=== PATIENT | male | born 1975 | race Caucasian/White ===

== ENCOUNTER 2023-02-22 20:47 | Inpatient (IN) | payer SELFPAY ==
[~2023-02-22] VITALS: Ht 170.2 cm; Wt 88.9 kg
[2023-02-22 21:40] VITALS: BP_SYST 131; PULSE 85; RESP 17; TEMP 97.9; O2SAT 98
[2023-02-22 23:05] LABS: BASOPHILS # (AUTO) 0.1 K/uL (0.0-0.2); BASOPHILS % (AUTO) 1.3 % (0.0-2.0); EOSINOPHILS # (AUTO) 0.4 K/uL (0.0-0.4); EOSINOPHILS % (AUTO) 5.9 % (0.0-4.0); HEMATOCRIT 43.6 % (36-54); HEMOGLOBIN 14.7 g/dL (14.0-18.0); LYMPHOCYTES # (AUTO) 2.1 K/uL (1.0-5.5); LYMPHOCYTES % (AUTO) 28.6 % (20.5-51.5); MEAN CORPUSCULAR HEMOGLOBIN 31 pg (27-31); MEAN CORPUSCULAR HGB CONC 34 % (32-36); MEAN CORPUSCULAR VOLUME 92 fL (79.0-98.0); MONOCYTES # (AUTO) 0.8 K/uL (0.0-1.0); MONOCYTES % (AUTO) 10.3 % (1.7-9.3); NEUTROPHILS % (AUTO) 53.9 % (40.0-70.0); PLATELET COUNT (AUTO) 279 K/uL (130-430); RED BLOOD CELL COUNT(AUTO) 4.74 MIL/uL (4.2-6.2); RED CELL DISTRIBUTION WIDTH 12.7 % (9.0-15.0); WHITE BLOOD COUNT (AUTO) 7.3 K/uL (4.8-10.8)
[2023-02-22 23:33] LABS: CALCIUM 8.4 mg/dL (8.4-11.0); CREATININE 1.1 mg/dL (0.55-1.30)
[2023-02-22 23:38] LABS: ALBUMIN 3.7 g/dL (3.4-4.8); TOTAL BILIRUBIN 0.3 mg/dL (0.0-1.0)
[2023-02-22 23:39] LABS: BILIRUBIN,URINE NEGATIVE (NEGATIVE); BLOOD, URINE NEGATIVE (NEGATIVE); CLARITY/URINE CLEAR (CLEAR); COLOR,URINE YELLOW (YELLOW); GLUCOSE,URINE NEGATIVE (NEGATIVE); KETONES,URINE NEGATIVE (NEGATIVE); LEUKOCYTE ESTERASE ,URINE NEGATIVE (NEGATIVE); NITRITE, URINE NEGATIVE (NEGATIVE); PROTEIN URINE NEGATIVE (NEGATIVE); UROBILINOGEN,URINE 0.2 (0.2-1.0)
[2023-02-23] MEDS ORDERED: NACL 0.9% 1,000 ML IV ONE (00:15)
[2023-02-23 04:25] VITALS: BP_SYST 156; PULSE 68; RESP 18; TEMP 97.3
[2023-02-23] MEDS: D5/0.45 NS 1,000 ML IV SCH ×2 (04:56→13:18)
[2023-02-23 05:18] VITALS: O2SAT 97
[2023-02-23 08:00] VITALS: BP_SYST 154; PULSE 60; RESP 18; TEMP 97.2; O2SAT 98
[2023-02-23 16:00] VITALS: BP_SYST 147; PULSE 59; RESP 18; TEMP 97; O2SAT 97
[2023-02-23] MEDS ORDERED: ONDANSETRON HCL 4 MG/2 ML VIAL IVP PRN (18:00)
[2023-02-23] MEDS ORDERED: MORPHINE 4 MG INJ. 4 MG/ML VIAL IVP PRN (18:00)
[2023-02-23] MEDS ORDERED: NALOXONE HCL 0.4 MG/ML AMP (NARCAN) IVP PRN (18:00)
[2023-02-23] MEDS ORDERED: MORPHINE 2 MG/ML INJ. SYRINGE IVP PRN (18:00)
[2023-02-23] MEDS ORDERED: LORazepam 2 MG/ML VIAL IVP PRN (18:00)
[2023-02-23 20:30] VITALS: BP_SYST 144; PULSE 54; RESP 18; TEMP 97.6
[2023-02-23 21:00] VITALS: O2SAT 99
[2023-02-24 00:26] VITALS: BP_SYST 143; PULSE 65; RESP 18; TEMP 97.1; O2SAT 98
[2023-02-24 05:06] LABS: BASOPHILS # (AUTO) 0.1 K/uL (0.0-0.2); BASOPHILS % (AUTO) 1.3 % (0.0-2.0); EOSINOPHILS # (AUTO) 0.5 K/uL (0.0-0.4); EOSINOPHILS % (AUTO) 7.6 % (0.0-4.0); HEMATOCRIT 44.7 % (36-54); HEMOGLOBIN 15.1 g/dL (14.0-18.0); LYMPHOCYTES # (AUTO) 1.9 K/uL (1.0-5.5); LYMPHOCYTES % (AUTO) 32.5 % (20.5-51.5); MEAN CORPUSCULAR HEMOGLOBIN 31 pg (27-31); MEAN CORPUSCULAR HGB CONC 34 % (32-36); MEAN CORPUSCULAR VOLUME 92 fL (79.0-98.0); MONOCYTES # (AUTO) 0.6 K/uL (0.0-1.0); MONOCYTES % (AUTO) 10.9 % (1.7-9.3); NEUTROPHILS # (AUTO) 2.8 K/uL (1.8-7.7); NEUTROPHILS % (AUTO) 47.7 % (40.0-70.0); PLATELET COUNT (AUTO) 260 K/uL (130-430); RED BLOOD CELL COUNT(AUTO) 4.88 MIL/uL (4.2-6.2); RED CELL DISTRIBUTION WIDTH 12.7 % (9.0-15.0)
[2023-02-24 05:28] LABS: CALCIUM 8.3 mg/dL (8.4-11.0); CREATININE 1.15 mg/dL (0.55-1.30)
[2023-02-24] MEDS: D5/0.45 NS 1,000 ML IV SCH ×2 (06:11→08:03)
[2023-02-24 08:00] VITALS: BP_SYST 137; PULSE 73; RESP 18; TEMP 97; O2SAT 96
[2023-02-24] MEDS ORDERED: iohexoL 350 mgI/mL, 100 ML INFUS..BTL IV ONE (10:29)
[2023-02-24 12:00] VITALS: BP_SYST 136; PULSE 60; RESP 20; TEMP 98; O2SAT 100
[2023-02-24] MEDS ORDERED: DIATR MEGLU/DIATRIZ SOD 30 ML SOLUTION PO ONE (15:34)
[2023-02-24 16:00] VITALS: BP_SYST 129; PULSE 69; RESP 18; TEMP 97.8; O2SAT 100
== END 2023-02-24 15:57 | disposition left against medical advice (07) | DRG 440 ==
LOC: SED 20:47 → SMU 02-23 02:54
PROVIDERS: ADMIT Preventive Medicine Preventive Medicine/Occupational Environmental Medicine; ATTEND Preventive Medicine Preventive Medicine/Occupational Environmental Medicine
DX: K85.90 Acute pancreatitis without necrosis or infection, unspecified (principal); K76.0 Fatty (change of) liver, not elsewhere classified; E83.52 Hypercalcemia; R73.9 Hyperglycemia, unspecified
CPT/HCPCS: 36415; 76705; 80048; 80053; 80061; 81003; 82150; 83690; 85025; 99285; Q9964; Q9967